=== PATIENT | male | born 1960 | race Caucasian/White ===

== ENCOUNTER 2019-10-28 20:39 | Emergency (ER) | payer MEDICAID ==
--- NOTE | 2019-10-28 20:58 | ED Physician Documentation ---
PD HPI SKIN - Stated complaint Stated Complaint: SWELLING FACE - Chief complaint Chief Complaint: Wound - History obtained from History obtained from: Patient - History of Present Illness Timing - onset: Yesterday Timing - details: Abrupt onset, Waxing and waning (He was stung yesterday multiple times while mowing the lawn. He did have redness and swelling at the areas that decreased some into the evening but have worsened again through the day today in multiple areas) Location: Face, Other (There is a sting on the left cheek of the face. Multiple on both arms and several on both legs anteriorly. Couple of stings on the back. No generalized hives or rash.) Quality / character: Itchy, Painful, Discolored (red), Swelling. No: Vesicular Improved by: No: Benadryl Associated symptoms: Myalgias, Facial swelling (at sting site on cheek and around it. No general facial swelling nor any intraoral.). No: Fever, Dyspnea, N/V/D Contributing factors: Insect bite /sting (multiple sites) Similar symptoms before: Has not had sx before (he states was stung 3 weeks ago on arm with minimal reaction at that time.) Review of Systems Constitutional: denies: Fever, Chills Throat: denies: Oral lesions / sores Respiratory: denies: Dyspnea, Wheezing GI: denies: Nausea, Vomiting Neurologic: denies: Near syncope, Altered mental status, Headache PD PAST MEDICAL HISTORY - Past Medical History Neuro: None Endocrine/Autoimmune: None - Past Surgical History Past Surgical History: Yes Ortho: Rotator cuff repair - Present Medications Home Medications: Ambulatory Orders Medication Instructions Recorded Confirmed Hydrocodone/Acetaminophen 1 - 2 each PO Q6H PRN #10 tablet 07/02/14 [Hydrocodon-Acetaminophen 5-325] Tramadol HCl 50 mg ORAL TID 07/02/14 07/02/14 Cetirizine [ZyrTEC] 10 mg PO DAILY #15 tablet 10/28/19 Hydrocodone/Acetaminophen [Preston 1 each PO Q6H PRN #10 tablet 10/28/19 5-325 Tablet] dexAMETHasone [Decadron] 4 mg PO DAILY #5 tablet 10/28/19 - Allergies Allergies/Adverse Reactions: Allergies Allergy/AdvReac Type Severity Reaction Status Date / Time No Known Drug Allergies Allergy Verified 10/28/19 20:49 - Social History Does the pt smoke?: No Smoking Status: Never smoker Does the pt drink ETOH?: Yes Does the pt have substance abuse?: No PD ED PE NORMAL - Vitals Vital signs reviewed: Yes - General General: Alert and oriented X 3, Well developed/nourished, Other (appears uncomfortable due to multiple sting sites and swelling. Normal voice and swallowing. ) - HEENT HEENT: Pharynx benign - Neck Neck: Supple, no meningeal sign, No adenopathy - Cardiac Cardiac: RRR, No murmur - Respiratory Respiratory: Clear bilaterally - Derm Derm: Normal color, Warm and dry, Other (Multiple sites of redness swelling and induration at discrete bee sting areas. No generalized hives or rash. There is a sting on the left cheek of the face, several on the arms and several on the legs. There are a couple on his back that are less swollen than the others) Results - Vitals Vitals: Vital Signs - 24 hr 10/28/19 10/28/19 20:46 21:39 Temperature 36.1 C L Heart Rate 88 82 Respiratory 16 16 Rate Blood Pressure 128/76 134/78 H O2 Saturation 97 98 Oxygen O2 Source Room air PD MEDICAL DECISION MAKING - ED course Complexity details: considered differential (Has increased local reaction at several beesting sites. Rather too early for infection and would be unlikely at several sites simultaneously. No general reaction, so not indicated for carrying EpiPen. ), d/w patient Departure - Departure Disposition: 01 Home, Self Care Condition: Stable Record reviewed to determine appropriate education?: Yes Instructions: ED Bite Sting Insect Local Allergic React Follow-Up: SHADE BENSON DO [Primary Care Provider] - Prescriptions: dexAMETHasone [Decadron] 4 mg PO DAILY #5 tablet Hydrocodone/Acetaminophen [Preston 5-325 Tablet] 1 each PO Q6H PRN #10 tablet PRN Reason: Pain Cetirizine [ZyrTEC] 10 mg PO DAILY #15 tablet Comments: Decadron steroid daily for the next 5 to 7 days. Multiple bee sting reactions can last several days often. Continue antihistamines long-acting such as cetirizine daily for the next week or 2 and Benadryl every 4-6 hours if needed for itching. Add pain meds if needed. Discharge Date/Time: 10/28/19 21:35
[2019-10-28] MEDS ORDERED: DEXAMETHASONE 10 MG/ML VIAL PO STA (21:12)
[2019-10-28] MEDS ORDERED: CETIRIZINE 10 MG TABLET PO STA (21:12)
[2019-10-28] MEDS ORDERED: FAMOTIDINE 20 MG TABLET PO STA (21:12)
[2019-10-28] MEDS ORDERED: NAPROXEN 250 MG TABLET PO STA (21:12)
[2019-10-28] MEDS ORDERED: diphenhydrAMINE INJ 50 MG/ML VIAL IM STA (21:12)
[2019-10-28] MEDS ORDERED: HYDROcod/ACETAM 5/325 MG TABLET PO STA (21:12)
[2019-10-28] MEDS ORDERED: CHERRY SYRUP 10 ML UDC PO ONE (21:12)
[2019-10-28 21:43] VITALS: BP 134/78
== END 2019-10-28 21:35 | disposition home or self-care (01) ==
LOC: ED 20:39
DX: T63.441A Toxic effect of venom of bees, accidental (unintentional), initial encounter (principal); Y92.007 Garden or yard of unspecified non-institutional (private) residence as the place of occurrence of the external cause
CPT/HCPCS: 96372; 99283; 99284; A9270; J1200

== ENCOUNTER 2020-05-06 14:10 | Emergency (ER) | payer MEDICAID ==
--- NOTE | 2020-05-06 14:41 | ED Physician Documentation ---
History of Present Illness - Stated complaint Stated Complaint: RT HAND LAC - Chief complaint Chief Complaint: Laceration - Additonal information Additional information: 59-year-old male presents the emergency department for evaluation of a l aceration sustained on the palmar side right hand between MCP and PIP that occurred prior to arrival. He reports a glass broke in the sink. He is unsure if there is any residual glass in the wound. It is a vertical incision. He has intact flexion extension against resistance of the digit. Tetanus is up-to-date within the last 2 years. Patient is right-hand dominant. Review of Systems Constitutional: reports: Reviewed and negative Eyes: reports: Reviewed and negative Ears: reports: Reviewed and negative Nose: reports: Reviewed and negative Throat: reports: Reviewed and negative Cardiac: reports: Reviewed and negative GI: reports: Reviewed and negative : reports: Reviewed and negative Skin: reports: Laceration (s) (right ring finger) Musculoskeletal: reports: Reviewed and negative Neurologic: reports: Reviewed and negative PD PAST MEDICAL HISTORY - Past Medical History Neuro: None Endocrine/Autoimmune: None - Past Surgical History Past Surgical History: Yes Ortho: Rotator cuff repair - Present Medications Home Medications: Ambulatory Orders Medication Instructions Recorded Confirmed dexAMETHasone [Decadron] 4 mg PO DAILY #5 tablet 10/28/19 Clotrimazole/Betamethasone Dip 30 ml TP PRN PRN 05/06/20 05/06/20 [Clotrimazole-Betamethasone Lot] Dicyclomine [Bentyl] 10 mg PO TID PRN 05/06/20 05/06/20 Terbinafine [LamISIL] 250 mg PO DAILY 05/06/20 05/06/20 - Allergies Allergies/Adverse Reactions: Allergies Allergy/AdvReac Type Severity Reaction Status Date / Time No Known Drug Allergies Allergy Verified 05/06/20 14:21 - Social History Does the pt smoke?: No Smoking Status: Never smoker Does the pt drink ETOH?: Yes Does the pt have substance abuse?: No PD ED PE EXPANDED - General General: Alert, No acute distress - Extremities Extremities: Right finger(s) (2 cm vertical laceration palmar side right ring finger between MCP and PIP. Preserved flexion extension at all joints against resistance.Radial pulse.) Results - Vitals Vitals: Vital Signs - 24 hr 03/02/21 03/02/21 14:21 15:53 Temperature 36.4 C L Heart Rate 100 69 Respiratory 16 Rate Blood Pressure 154/90 H 127/91 H O2 Saturation 97 96 Oxygen O2 Source Room air Procedures - Laceration (location) finger laceration Length in cm: 2 Wound type: Irregular, Into subcut fat Neurovascular status: Sensory intact, Motor intact, Vascular intact Tendon involvement: Tendon intact Anesthesia: Lidocaine 1% Wound preparation: Chlorhexadine, Irrigated copiously NS Skin layer closure: Interrupted, Size #-0 - enter number (4), Sutures - enter # (4) Other: Patient tolerated well, No complications, Neurovascular intact, Tetanus UTD PD MEDICAL DECISION MAKING - ED course Complexity details: reviewed results, re-evaluated patient, considered differential ED course: 59-year-old male presents emergency department for evaluation of a right palmar fourth finger laceration sustained when a glass broke in the sink. Tetanus is up-to-date. No evidence of tendon injury on exam. finger x-ray did not show any foreign body. Wound was easily closed with 4 sutures. Routine wound care and emergent return precautions discussed. Departure - Departure Disposition: 01 Home, Self Care Clinical Impression: Finger laceration Qualifiers: Encounter type: initial encounter Finger: ring finger Damage to nail status: without damage Foreign body presence: without foreign body Laterality: right Qualified Code(s): S61.214A - Laceration without foreign body of right ring finger without damage to nail, initial encounter Condition: Stable Record reviewed to determine appropriate education?: Yes Comments: Your sutures should be removed in 7 to 10 days. In 24 hours you may remove the dressing wash gently with warm soap and water, apply any antibiotic ointment and a simple bandage. Your tetanus is up-to-date. Please attempt to keep your wound clean and dry. Do not submerge it in dirty dishwater or bath water. Return to the emergency department if you have any concerns of infection such as redness, fevers milky drainage increased pain.
[2020-05-06] MEDS ORDERED: BUFFERED LIDOCAINE 10 ML SYRINGE SUBQ STA (15:34)
[2020-05-06] MEDS ORDERED: BACITRACIN ZINC OINT 1 PACKET TOP STA (15:57)
--- NOTE | 2020-05-06 16:06 | XRAY Report ---
PROCEDURE: Finger(s) RT INDICATIONS: ring finger lac; r/o FB TECHNIQUE: AP hand, 3 views of the 4th finger(s) acquired. COMPARISON: None. FINDINGS: Bones: No acute fractures or dislocations. Degenerative changes of the left hand are noted at the di stal interphalangeal joint of the second and fifth fingers, proximal interphalangeal joints of the le ft fourth and fifth fingers, the metacarpophalangeal joint of the left middle finger, as well as mini mal degenerative changes of the left thumb metacarpophalangeal and interphalangeal joints. No suspici ous bony lesions. Soft tissues: No suspicious soft tissue calcifications. No radiopaque soft tissue foreign body. IMPRESSION: Left hand and fourth finger without fracture or dislocation. No radiopaque soft tissue foreign bodies visualized. Reviewed by: Kyler Willams MD on 05/06/2020 4:05 PM PST Approved by: Kyler Willams MD on 05/06/2020 4:05 PM PST Station ID: [id number]
[2020-05-06 16:14] VITALS: BP 108/80
== END 2020-05-06 16:35 | disposition home or self-care (01) ==
LOC: ED 14:10
DX: S61.411A Laceration without foreign body of right hand, initial encounter (principal); W25.XXXA Contact with sharp glass, initial encounter
CPT/HCPCS: 12011; 73140; 99282; 99283; A9270

== ENCOUNTER 2023-05-18 13:01 | Outpatient (CLI) | payer MEDICAID ==
--- NOTE | 2023-05-18 15:29 | XRAY Report ---
PROCEDURE: Ankle 3+V RT INDICATIONS: PAIN IN RIGH ANKLE TECHNIQUE: 3 views of the ankle were acquired. COMPARISON: None. FINDINGS: Bones: No fractures or dislocations. Ankle mortise is normally aligned. No suspicious bony lesions . Soft tissues: No tibiotalar joint effusion. Achilles tendon appears normal. IMPRESSION: No acute bony abnormality. If there remains a high clinical concern for fracture, consider cross-sect ional imaging now. If pain persists, consider repeat x-ray in 10-14 days or cross-sectional imaging. Reviewed by: Jessica Gonzalez MD on 05/18/2023 3:27 PM PDT Approved by: Jessica Gonzalez MD on 05/18/2023 3:27 PM PDT Station ID: [id number]
== END 2023-05-18 13:02 | disposition home or self-care (01) ==
LOC: DI.N 13:01
PROVIDERS: ATTEND Physician Assistant Medical
DX: M25.571 Pain in right ankle and joints of right foot (principal)